=== PATIENT | female | born 1940 ===

== ENCOUNTER 2018-01-18 08:12 | Emergency (ER) | payer OTHER ==
[~2018-01-18] VITALS: Ht 167.6 cm; Wt 90.7 kg
[2018-01-18] MEDS ORDERED: GLUCOPHAGE XR750 MG (08:44)
[2018-01-18] MEDS ORDERED: CRESTOR10 MG (08:44)
== END 2018-01-18 14:00 | disposition home or self-care (01) ==
LOC: ER 08:12
DX: N39.0 Urinary tract infection, site not specified (principal); B96.89 Other specified bacterial agents as the cause of diseases classified elsewhere; R31.9 Hematuria, unspecified